=== PATIENT | female | born 1935 | race African-American/Black ===

== ENCOUNTER 2017-12-12 10:25 | Inpatient (IN) | payer MEDICARE, MEDICAID ==
[~2017-12-12] VITALS: Ht 160 cm; Wt 71.2 kg
[~2017-12-12 10:25] MED LIST: AMLO5TAB88 PO; LOT10 PO; METO25TA6 PO
[2018-03-14] MEDS ORDERED: ACETAMINOPHEN 325MG TABLET PO PRN (11:15)
[2018-03-14] MEDS ORDERED: GUAIFENESIN 200MG/10ML SUGAR FREE UDC PO PRN (11:15)
[2018-03-14] MEDS ORDERED: CLONIDINE 0.1MG TABLET PO PRN (11:15)
[2018-03-14] MEDS ORDERED: BARIUM SULFATE 450ML ORAL SUSP PO SCH (11:15)
[2018-03-14] MEDS ORDERED: NITROGLYCERIN 0.4MG TABLET SL SL PRN (11:15)
[2018-03-14] MEDS ORDERED: DOCUSATE SODIUM 100MG CAPSULE PO PRN (11:15)
[2018-03-14] MEDS ORDERED: IPRATROPIUM/ALBUTEROL 0.5-3(2.5)MG/3ML NEB INH PRN (11:15)
[2018-03-14] MEDS ORDERED: DIPHENHYDRAMINE 50MG/ML VIAL IV PRN (11:15)
[2018-03-14] MEDS ORDERED: MAGNESIUM/ALUMINUM HYDROXIDE/SIMETHICONE 30ML UDC PO PRN (11:15)
[2018-03-14] MEDS ORDERED: ONDANSETRON HCL 4MG/2ML INJ IV PRN (11:15)
[2018-03-14] MEDS ORDERED: NA PHOS,M-B/NA PHOS,DI-BA ENEMA 118ML PR PRN (11:15)
[2018-03-14 11:49] VITALS: BP_SYST 146; BP_SYST 147; BP_DIAS 60; BP_DIAS 86
[2018-03-14 12:38] VITALS: BP 146/60
[2018-03-14] MEDS ORDERED: SODIUM BICARBONATE 4% (2.4MEQ) 5ML VIAL IV ONE (13:05)
[2018-03-14] MEDS ORDERED: LIDOCAINE HCL 1% 10 MG/ML 10ML VIAL ONE (13:05)
[2018-03-14] MEDS ORDERED: DIATR MEGLU/DIATRIZOATE SOLN 30ML PO SCH (13:30)
[2018-03-14] MEDS ORDERED: DIATR MEGLU/DIATRIZOATE SOLN 30ML PO ONE (13:30)
[2018-03-14 14:05] LABS: LDL CHOLESTEROL 89 mg/dL (5-100)
[2018-03-14 14:07] LABS: CREATINE KINASE 46 IU/L (26-192); T4 FREE 1.12 ng/dL (0.76-1.46)
[2018-03-14 14:08] LABS: HDL CHOLESTEROL 45 mg/dL (40-59); TOTAL IRON BINDING CAPACITY 233 ug/dL (250-450)
[2018-03-14 14:09] LABS: CREATINE KINASE MB FRACTION < 1.0 ng/mL (0.5-3.6)
[2018-03-14 14:19] LABS: FOLIC ACID (FOLATE) SERUM 15.3 ng/mL (>5.38)
[2018-03-14 15:44] LABS: HEMATOCRIT 37.8 % (36.0-48.0); HEMOGLOBIN 12.4 g/dL (12.0-16.0); MEAN CORPUSCULAR HEMOGLOBIN 27.7 pg (28.0-32.0); MEAN CORPUSCULAR VOLUME 84.7 fL (81.0-99.0); PLATELET 281 x1000/uL (130-400); RED BLOOD CELL COUNT 4.46 mill/uL (4.2-5.4); RED CELL DISTRIBUTION WIDTH 15.7 % (11.6-14.6)
[2018-03-14 16:03] LABS: CHLORIDE 103 mEq/L (98-107)
[2018-03-14 16:24] VITALS: BP 145/55
[2018-03-14] MEDS: AMLODIPINE 10MG TABLET PO SCH (16:28)
[2018-03-14] MEDS ORDERED: IOHEXOL-300 100 ML BOTTLE ONE (16:59)
[2018-03-14] MEDS: ENOXAPARIN 40MG/0.4ML SYR SUBCUT SCH (18:07)
[2018-03-14] MEDS: FAMOTIDINE 20MG TABLET PO SCH (18:19)
[2018-03-14 19:09] LABS: CLARITY URINE CLEAR (CLEAR); COLOR URINE DARK YELLOW (YELLOW); KETONES URINE NEGATIVE (NEGATIVE); LEUKOCYTE ESTERASE URINE TRACE (NEGATIVE); NITRITE URINE NEGATIVE (NEGATIVE); OCCULT BLOOD URINE NEGATIVE (NEGATIVE); PROTEIN URINE NEGATIVE (NEGATIVE)
[2018-03-14 20:00] VITALS: BP 133/58
[2018-03-15] VITALS: BP 110/56
[2018-03-15] MEDS: MORPHINE SULFATE 4 MG/ML CPJ (NOT FOR IM USE) IV PRN (00:33)
[2018-03-15 00:37] LABS: INR 1.2; PROTHROMBIN TIME 11.8 sec (9.1-11.1)
[2018-03-15 01:01] LABS: CREATINE KINASE 42 IU/L (26-192)
[2018-03-15 01:03] LABS: CREATINE KINASE MB FRACTION < 1.0 ng/mL (0.5-3.6)
[2018-03-15 04:00] VITALS: BP 164/84
[2018-03-15 08:04] VITALS: BP 122/68
[2018-03-15 12:30] VITALS: BP 128/68
[2018-03-15] MEDS: AMLODIPINE 10MG TABLET PO SCH (16:04)
[2018-03-15] MEDS: FAMOTIDINE 20MG TABLET PO SCH (16:04)
[2018-03-15 16:25] VITALS: BP 132/62
[2018-03-15] MEDS: ENOXAPARIN 40MG/0.4ML SYR SUBCUT SCH (17:00)
[2018-03-15 19:56] VITALS: BP 156/93
[2018-03-15] MEDS: ZOLPIDEM TARTRATE 5MG TABLET PO PRN (23:50)
[2018-03-16] VITALS (7 sets, daily range): BP systolic 124–144; BP diastolic 62–104
[2018-03-16] MEDS: AMLODIPINE 10MG TABLET PO SCH (09:41)
[2018-03-16] MEDS: FAMOTIDINE 20MG TABLET PO SCH (09:42)
[2018-03-16] MEDS: ENOXAPARIN 40MG/0.4ML SYR SUBCUT SCH (18:03)
[2018-03-16] MEDS: LACTULOSE 20G/30ML UDC PO SCH (21:02)
[2018-03-16] MEDS: MORPHINE SULFATE 4 MG/ML CPJ (NOT FOR IM USE) IV PRN (21:02)
[2018-03-16] MEDS: ATORVASTATIN CALCIUM 10MG TABLET PO SCH (21:02)
[2018-03-17 02:06] VITALS: BP 125/60
[2018-03-17] MEDS: MORPHINE SULFATE 4 MG/ML CPJ (NOT FOR IM USE) IV PRN ×3 (02:09→17:46)
[2018-03-17 04:00] VITALS: BP 126/75
[2018-03-17 08:00] VITALS: BP 138/72
[2018-03-17] MEDS: FAMOTIDINE 20MG TABLET PO SCH (08:14)
[2018-03-17] MEDS: AMLODIPINE 10MG TABLET PO SCH (08:14)
[2018-03-17 12:00] VITALS: BP 135/45
[2018-03-17] MEDS: KETOROLAC 30MG/ML VIAL IV PRN (12:22)
[2018-03-17 16:00] VITALS: BP 106/61
[2018-03-17] MEDS: ENOXAPARIN 40MG/0.4ML SYR SUBCUT SCH (17:20)
[2018-03-17 20:00] VITALS: BP 112/61
[2018-03-17] MEDS: ATORVASTATIN CALCIUM 10MG TABLET PO SCH (20:59)
[2018-03-17] MEDS: LACTULOSE 20G/30ML UDC PO SCH (20:59)
[2018-03-18 00:17] VITALS: BP 122/60
[2018-03-18 04:00] VITALS: BP 120/66
[2018-03-18] MEDS: AMLODIPINE 10MG TABLET PO SCH (08:27)
[2018-03-18] MEDS: FAMOTIDINE 20MG TABLET PO SCH (08:27)
[2018-03-18] MEDS: MORPHINE SULFATE 4 MG/ML CPJ (NOT FOR IM USE) IV PRN ×2 (09:57→22:21)
[2018-03-18 12:00] VITALS: BP 104/48
[2018-03-18 16:00] VITALS: BP 121/65
[2018-03-18] MEDS: ENOXAPARIN 40MG/0.4ML SYR SUBCUT SCH (17:31)
[2018-03-18 20:00] VITALS: BP 124/56
[2018-03-18] MEDS: LACTULOSE 20G/30ML UDC PO SCH (21:05)
[2018-03-18] MEDS: ATORVASTATIN CALCIUM 10MG TABLET PO SCH (21:05)
[2018-03-18] MEDS: ZOLPIDEM TARTRATE 5MG TABLET PO PRN (21:05)
[2018-03-19] VITALS: BP 113/51
[2018-03-19 04:00] VITALS: BP 106/61
[2018-03-19] MEDS: KETOROLAC 30MG/ML VIAL IV PRN (05:51)
[2018-03-19 08:00] VITALS: BP 116/65
[2018-03-19] MEDS: MORPHINE SULFATE 4 MG/ML CPJ (NOT FOR IM USE) IV PRN (08:59)
[2018-03-19] MEDS ORDERED: AMLODIPINE 5MG TABLET PO SCH (09:00)
[2018-03-19] MEDS: FAMOTIDINE 20MG TABLET PO SCH (09:05)
[2018-03-19 12:48] VITALS: BP 124/52
[2018-03-19 13:47] VITALS: BP 116/65
[2018-03-19 16:00] VITALS: BP 153/61
== END 2018-03-19 16:54 | disposition home health service (06) | DRG 689 ==
LOC: 6WST 10:25 → UNDOADMIN 10:25 → 6WST 03-13 16:35 → UNDOADMIN 03-13 16:35 → 6WST 03-14 10:25
PROVIDERS: ADMIT Internal Medicine; ATTEND Internal Medicine
PROC: 02HV33Z Insertion of Infusion Device into Superior Vena Cava, Percutaneous Approach (ICD-10-PCS; principal; 2018-03-14)
PROC: B5181ZA Fluoroscopy of Superior Vena Cava using Low Osmolar Contrast, Guidance (ICD-10-PCS; 2018-03-14)
PROC: B548ZZA Ultrasonography of Superior Vena Cava, Guidance (ICD-10-PCS; 2018-03-14)
DX: N39.0 Urinary tract infection, site not specified (principal); G93.49 Other encephalopathy; M48.56XA Collapsed vertebra, not elsewhere classified, lumbar region, initial encounter for fracture; D68.59 Other primary thrombophilia; J44.9 Chronic obstructive pulmonary disease, unspecified; I10 Essential (primary) hypertension; F03.90 Unspecified dementia, unspecified severity, without behavioral disturbance, psychotic disturbance, mood disturbance, and anxiety; Z66 Do not resuscitate; R91.8 Other nonspecific abnormal finding of lung field; I49.9 Cardiac arrhythmia, unspecified; R33.9 Retention of urine, unspecified; M54.9 Dorsalgia, unspecified; Z79.899 Other long term (current) drug therapy; Z87.891 Personal history of nicotine dependence; I69.334 Monoplegia of upper limb following cerebral infarction affecting left non-dominant side
CPT/HCPCS: 36415; 36569; 71270; 74178; 76937; 77001; 80048; 80061; 81003; 82550; 82553; 82746; 83036; 83540; 83550; 84439; 84443; 84484; 85027; 85610; 87040; 87086; 93970; 94640; 97162; 97166; 97530; C1725; J1650; J1885; J2270; J3490; J7620; Q9963; Q9967; A4315

== ENCOUNTER 2018-02-06 15:15 | Emergency (ER) | payer MEDICARE, MEDICAID ==
[~2018-02-06] VITALS: Ht 160 cm; Wt 64.0 kg
[2018-02-06] MEDS ORDERED: ASPIRIN 81MG TABLET PO ONE (16:30)
[2018-02-06 16:35] LABS: BASOPHILS % 0.9 % (0.0-2.0); EOSINOPHILS % 1.1 % (0.0-5.0); HEMATOCRIT. 39.4 % (36.0-48.0); HEMOGLOBIN. 12.9 g/dL (12.0-16.0); LYMPHOCYTES % 32.5 % (20.0-50.0); MEAN CORPUSCULAR HEMOGLOBIN 27.8 pg (28.0-32.0); MEAN CORPUSCULAR VOLUME 85.2 fL (81.0-99.0); MEAN PLATELET VOLUME 9.3 fl (7.4-10.4); NEUTROPHILS % 56.5 % (40.0-76.0); PLATELET 271 x1000/uL (130-400); RED BLOOD CELL COUNT 4.62 mill/uL (4.2-5.4); RED CELL DISTRIBUTION WIDTH 15.5 % (11.6-14.6)
[2018-02-06 16:41] LABS: CHLORIDE 107 mEq/L (98-107)
[2018-02-06 16:43] LABS: INR 1.1; PROTHROMBIN TIME 11.4 sec (9.1-11.1)
[2018-02-06 17:54] VITALS: BP 146/79
== END 2018-02-06 18:49 | disposition home or self-care (01) ==
LOC: ER 15:15 → CANBEDREQ 18:59
DX: R00.1 Bradycardia, unspecified (principal); F03.90 Unspecified dementia, unspecified severity, without behavioral disturbance, psychotic disturbance, mood disturbance, and anxiety; I10 Essential (primary) hypertension; Z86.73 Personal history of transient ischemic attack (TIA), and cerebral infarction without residual deficits; Z87.891 Personal history of nicotine dependence; Z79.899 Other long term (current) drug therapy
CPT/HCPCS: 36415; 71045; 80053; 84484; 85025; 85610; 93005; 99285